=== PATIENT | male | born 1960 | race Caucasian/White ===

== ENCOUNTER 2020-03-08 00:19 | Emergency (ER) | payer MEDICARE, MEDICAID ==
[~2020-03-08] VITALS: Ht 172 cm; Wt 90.0 kg
--- OUTSIDE RECORDS SUMMARY | 2020-03-08 00:30 | XMS REPORT ---
Author Author Chester LEACH Organization [facility] Address [address] [place] [address] Care Team Providers Care Chief Human Resources Officer Name Role Phone CINDA LEACH Unavailable PROBLEMS Type Condition ICD9-CM Code [id number] Code Onset Dates Condition S tatus SNOMED Code Problem Essential hypertension I10 Active 73266042 Problem Chronic obstructive pulmonary disease, unspecified COPD ty pe J44.9 Active 39337960 Problem Type 2 diabetes mellitus wit hout complication, without long-term current use of insulin E11.9 Active 013011897 Problem Coronary artery disease invo lving [place] coronary artery of [place] heart without angina pectoris I25.10 Active 1641 023670452 Problem Reactive depression F32.9 Active 92656929 ALLERGIES Substance Reaction Event Type Date Status bee sting anaphylaxis Non Drug Allergy Jun, Active Benedryl elevated blood pressure Non Drug Allergy Jun, Active ENCOUNTERS Encounter Location Date Diagnosis [facility] [address] [id number] [place] [id number] Jul, [facility] [address] [id number] [id number] Jun, Coronary artery disease involving [place] coronary artery of [place] heart without angina pectoris I25.10 ; Essential hypertension I10 ; Type 2 diabetes mellitus without complication, without long-term current use of insulin E11.9 ; Chronic obstructive pulmonary disease, unspecified COPD type J44.9 and Reactive depression F32.9 IMMUNIZATIONS No Known Immunizations SOCIAL HISTORY Never Assessed REASON FOR VISIT Establish Care Vick SORIA, Needs med refills Vick SORIA, Med list verified with livan Beyer RN PLAN OF CARE Activity Details Follow Up 4 Weeks Reason:htn est car e VITAL SIGNS Height 66 in 2018-06-16 Weight 253.0 lbs 2018-06-16 Temperature 96.3 degrees Fahrenheit 2018-06-16 Heart Rate 98 bpm 2018-06-16 Respiratory Rate 22 2018-06-16 BMI 40.83 kg/m2 2018-06-16 Blood pressure systolic 212 mmHg 2018-06-16 Blood pressure diastolic 92 mmHg 2018-06-16 MEDICATIONS Medication Instructions Dosage Frequency Start Date End Date Duration S tatus Plavix 75 MG Orally Once a day 1 tablet 24h 30 day(s ) Active Lisinopril 40 MG Orally Once a day 1 tablet 24h 30 d ay(s) Active Lipitor 80 MG Orally Once a day 1 tablet 24h 30 day( s) Active Albuterol Sulfate HFA 108 (90 Base) mcg/act Inhalation 4 chen es a day 2 puffs as needed 6h Jun, Active Carvedilol 25 MG Orally 2 times a day 1 tablet 12h Active Norvasc 2.5 MG Orally Once a day 1 tablet 24h 30 day (s) Active Gabapentin 300 MG Orally 3 times a day 1 capsule 8h 30 day(s) Active Isosorbide Mononitrate ER 60 MG Orally Once a day 1 tablet in the mor naheed 24h 30 day(s) Active Prazosin HCl 1 MG Orally Once a day 1 capsule at bedtime 24h 30 day(s) Active Glucometer as directed Jun, Acti ve MetFORMIN HCl ER 500 MG Orally 2 times a day 2 tablets 12h 30 day(s) Active RESULTS No Results PROCEDURES No Known procedures INSTRUCTIONS MEDICATIONS ADMINISTERED No Known Medications MEDICAL (GENERAL) HISTORY Type Description Date Medical History congestive heart failure Medical History atherosclerosis Medical History hypertension Medical History diabetes type 2 Medical History COPD Medical History [place] 27 Surgical History brenda w/screw in right leg 2013 Surgical History stints x2 2017 Surgical History Teeth removal 1995 Surgical History sleep apnea surgery Hospitalization History [facility] Heart [facility] 06/2018
--- OUTSIDE RECORDS SUMMARY | 2020-03-08 00:30 | XMS REPORT ---
Author Author Chester MARSHALL Organization [facility] Address [address] [place] [address] Care Team Providers Care Automotive Assembler Name Role Phone KRUPA MARSHALL Unavailable PROBLEMS Type Condition ICD9-CM Code [id number] Code Onset Dates Condition S tatus SNOMED Code Problem Essential hypertension I10 Active 69882939 Problem Chronic obstructive pulmonary disease, unspecified COPD ty pe J44.9 Active 12032215 Problem Type 2 diabetes mellitus wit hout complication, without long-term current use of insulin E11.9 Active 048586778 Problem Coronary artery disease invo lving [place] coronary artery of [place] heart without angina pectoris I25.10 Active 1641 813593437 Problem Reactive depression F32.9 Active 45964786 ALLERGIES No Information ENCOUNTERS Encounter Location Date [facility] [address] [id number], [place] [id number] Aug, [facility] [address] [id number], [place] [id number] Jul, [facility] [address] [facility] [id number] 100[place], [place] [address] Jul, [facility] [address] [id number], [place] [id number] Jul, [facility] [address] [id number], [place] [id number] Jul, Coronary artery disease involving [place] coronary artery of [place] heart without angina pectoris I25.10 ; Essential hypertension I10 ; Type 2 diabetes mellitus without complication, without long-term current use of insulin E11.9 ; Cellulitis of lower extremity, unspecified laterality L03.119 ; History of CHF (congestive heart failure) Z86.79 and Acute bacterial conjunctivitis of both eyes H10.33 [facility] [address] [id number] [place] [id number] Jul, [facility] [address] [id number] Maura GU[place]PA S [id number] Jun, Type 2 diabetes mellitus without complic ation, without long-term current use of insulin E11.9 ; Essential hypertension I10 ; Coronary artery disease involving [place] coronary artery of [place] heart without angina pectoris I25.10 and Chronic obstructive pulmonary disease, unspecified COPD type J44.9 [facility] [address] [id number] [place] [id number] Jun, [facility] [address] [id number] [place] [id number] Jun, Coronary artery disease involving [place] coronary artery of [place] heart without angina pectoris I25.10 ; Essential hypertension I10 ; Type 2 diabetes mellitus without complication, without long-term current use of insulin E11.9 ; Chronic obstructive pulmonary disease, unspecified COPD type J44.9 and Reactive depression F32.9 IMMUNIZATIONS No Known Immunizations SOCIAL HISTORY Never Assessed REASON FOR VISIT Returned call PLAN OF CARE VITAL SIGNS MEDICATIONS Unknown Medications RESULTS No Results PROCEDURES No Known procedures INSTRUCTIONS MEDICATIONS ADMINISTERED No Known Medications MEDICAL (GENERAL) HISTORY Type Description Date Medical History congestive heart failure Medical History atherosclerosis Medical History hypertension Medical History diabetes type 2 Medical History COPD Medical History [place] age 27 Surgical History brenda w/screw in right leg 2013 Surgical History stints x2 2017 Surgical History Teeth removal 1995 Surgical History sleep apnea surgery Hospitalization History [facility] Heart issues 06/2018 Hospitalization History [facility] for CP and hypertension 06/22/2018
--- OUTSIDE RECORDS SUMMARY | 2020-03-08 00:30 | XMS REPORT ---
Author Author Chester LEACH [facility] Address [address] [place] [address] Care Team Providers Care Glue Bone Crusher Name Role Phone CINDA LEACH Unavailable PROBLEMS Type Condition ICD9-CM Code [id number]-SV Code Onset Dates Condition S tatus SNOMED Code Problem Essential hypertension I10 Active 41152333 Problem Chronic obstructive pulmonary disease, unspecified COPD ty pe J44.9 Active 79744939 Problem Type 2 diabetes mellitus wit hout complication, without long-term current use of insulin E11.9 Active 805768131 Problem Coronary artery disease invo lving [place] coronary artery of [place] heart without angina pectoris I25.10 Active 1641 049836539 Problem Reactive depression F32.9 Active 73578489 ALLERGIES No Information ENCOUNTERS Encounter Location Date Diagnosis [facility] [address] [id number] [place], [place] [id number] Jul, [facility] [address] [facility] [address] [id number] [place] [id number] Jun, [facility] [address] [id number] [place] [id number] Jun, Coronary artery disease involving [place] coronary artery of [place] heart without angina pectoris I25.10 ; Essential hypertension I10 ; Type 2 diabetes mellitus without complication, without long-term current use of insulin E11.9 ; Chronic obstructive pulmonary disease, unspecified COPD type J44.9 and Reactive depression F32.9 IMMUNIZATIONS No Known Immunizations SOCIAL HISTORY Never Assessed REASON FOR VISIT PLAN OF CARE VITAL SIGNS MEDICATIONS Unknown Medications RESULTS No Results PROCEDURES No Known procedures INSTRUCTIONS MEDICATIONS ADMINISTERED No Known Medications MEDICAL (GENERAL) HISTORY Type Description Date Medical History congestive heart failure Medical History atherosclerosis Medical History hypertension Medical History diabetes type 2 Medical History COPD Medical History [place] age 27 Surgical History brenda w/screw in right leg 2013 Surgical History stints x2 2017 Surgical History Teeth removal 1995 Surgical History sleep apnea surgery Hospitalization History [facility] Heart [facility] 06/2018
--- OUTSIDE RECORDS SUMMARY | 2020-03-08 00:30 | XMS REPORT ---
Author Author Chester LEACH Organization [facility] Address [address] [place] [address] Care Team Providers Care Research Interviewer Name Role Phone CINDA LEACH Unavailable PROBLEMS Type Condition ICD9-CM Code [id number] Code Onset Dates Condition S tatus SNOMED Code Problem Essential hypertension I10 Active 49557584 Problem Chronic obstructive pulmonary disease, unspecified COPD ty pe J44.9 Active 06510903 Problem Type 2 diabetes mellitus wit hout complication, without long-term current use of insulin E11.9 Active 963710349 Problem Coronary artery disease invo lving [place] coronary artery of [place] heart without angina pectoris I25.10 Active 1641 657724991 Problem Reactive depression F32.9 Active 06047952 ALLERGIES No Information ENCOUNTERS Encounter Location Date [facility] [facility] [id number] [place], [place] [id number] Aug, [facility] [id number] CREEK, [place] [id number] Jul, [email or web address] [address] [id number] C[place] [id number] Jul, Coronary artery disease involving [place] coronary artery of [place] heart without angina pectoris I25.10 ; Essential hypertension I10 ; Type 2 diabetes mellitus without complication, without long-term current use of insulin E11.9 ; Cellulitis of lower extremity, unspecified laterality L03.119 ; History of CHF (congestive heart failure) Z86.79 and Acute bacterial conjunctivitis of both eyes H10.[address] [facility] [id number] CREEK[place] [id number] Jul, [facility] [address] [facility] [address] [id number] [facility] [id number] Jun, Type 2 diabetes mellitus without complic ation, without long-term current use of insulin E11.9 ; Essential hypertension I10 ; Coronary artery disease involving [place] coronary artery of [place] heart without angina pectoris I25.10 and Chronic obstructive pulmonary disease, unspecified COPD type J44.9 [facility] [address] [id number] [place] [id number] Jun, [facility] [address] [id number] [place] [id number] Jun, Coronary artery disease involving [place] coronary artery of [place] heart without angina pectoris I25.10 ; Essential hypertension I10 ; Type 2 diabetes mellitus without complication, without long-term current use of insulin E11.9 ; Chronic obstructive pulmonary disease, unspecified COPD type J44.9 and Reactive depression F32.9 IMMUNIZATIONS No Known Immunizations SOCIAL HISTORY Never Assessed REASON FOR VISIT phone call PLAN OF CARE VITAL SIGNS MEDICATIONS Unknown Medications RESULTS No Results PROCEDURES No Known procedures INSTRUCTIONS MEDICATIONS ADMINISTERED No Known Medications MEDICAL (GENERAL) HISTORY Type Description Date Medical History congestive heart failure Medical History atherosclerosis Medical History hypertension Medical History diabetes type 2 Medical History COPD Medical History [place] 27 Surgical History brenda w/screw in right leg 2013 Surgical History stints x2 2017 Surgical History Teeth removal 1995 Surgical History sleep apnea surgery Hospitalization History [facility] issues 06/2018 Hospitalization History [facility] for CP and hypertension 06/22/2018
--- OUTSIDE RECORDS SUMMARY | 2020-03-08 00:30 | XMS REPORT ---
Author Author Chester IBRAHIM [facility] ELIAS Address [address] [place] [address] Care Team Providers Care Twister In Name Role Phone DARIANA IBRAHIM Unavailable PROBLEMS Type Condition ICD9-CM Code [id number] Code Onset Dates Condition S tatus SNOMED Code Problem Essential hypertension I10 Active 77956318 Problem Chronic obstructive pulmonary disease, unspecified COPD ty pe J44.9 Active 07665244 Problem Type 2 diabetes mellitus wit hout complication, without long-term current use of insulin E11.9 Active 562032460 Problem Coronary artery disease invo lving [place] coronary artery of [place] heart without angina pectoris I25.10 Active 1641 730877735 Problem Reactive depression F32.9 Active 31006001 ALLERGIES Substance Reaction Event Type Date Status Benedryl elevated blood pressure Non Drug Allergy Jul, Active bee sting anaphylaxis Non Drug Allergy Jul, Active ENCOUNTERS Encounter Location Date Diagnosis [facility] [address] [address] [id number] [id number] [place]AP[place] [id number] Aug, [facility] [address] [id number] RAP[place], [place] [id number] Jul, [facility] [id number] RAPIDS, [place] [id number] Jul, Coronary artery disease involving [place] coronary artery of [place] heart without angina pectoris I25.10 ; Essential hypertension I10 ; Type 2 diabetes mellitus without complication, without long-term current use of insulin E11.9 ; Cellulitis of lower extremity, unspecified laterality L03.119 ; History of CHF (congestive heart failure) Z86.79 and Acute bacterial conjunctivitis of both eyes H10.33 [facility] [address] [address] [id number] RAPIDS, [place] [phone] Jul, [facility] [address] [id number] [facility] [id number] Jun, Type 2 diabetes mellitus without complic ation, without long-term current use of insulin E11.9 ; Essential hypertension I10 ; Coronary artery disease involving [place] coronary artery of [place] heart without angina pectoris I25.10 and Chronic obstructive pulmonary disease, unspecified COPD type J44.9 [facility] [address] [id number] [place] [id number] Jun, [facility] [id number] RAPIDS, [place] [id number] Jun, Coronary artery disease involving [place] coronary artery of [place] heart without angina pectoris I25.10 ; Essential hypertension I10 ; Type 2 diabetes mellitus without complication, without long-term current use of insulin E11.9 ; Chronic obstructive pulmonary disease, unspecified COPD type J44.9 and Reactive depression F32.9 IMMUNIZATIONS No Known Immunizations SOCIAL HISTORY Never Assessed REASON FOR VISIT blood pressure BFERRISMA PLAN OF CARE Activity Details Follow Up 1 Week Reason:BP/cellulitis follow up Pending Test LIPID PANEL Pending Test CMP Pending Test THYROID ANALYZER Pending Test BNP Pending Test EXTRA LAVENDER-TOP TUBE VITAL SIGNS Height 66 in 2018-07-18 Weight 246.3 lbs 2018-07-18 Temperature 98.2 degrees Fahrenheit 2018-07-18 Heart Rate 83 bpm 2018-07-18 Respiratory Rate 22 2018-07-18 Oximetry 95 % 2018-07-18 BMI 39.75 kg/m2 2018-07-18 Blood pressure systolic 133 mmHg 2018-07-18 Blood pressure diastolic 76 mmHg 2018-07-18 MEDICATIONS Medication Instructions Dosage Frequency Start Date End Date Duration S tatus MetFORMIN HCl ER 500 mg Orally 2 times a day 2 tablets 12h Active Prazosin HCl 1 MG Orally Once a day 1 capsule at bedtime 24h 30 day(s) Active Bactrim DS 800-160 MG Orally Twice a day 1 tablet 12h Jul, 10 day(s) Active Norvasc 10 MG Orally Once a day 1 tablet 24h 90 days Active Lasix 20 MG Orally Once a day 1 tablet 24h Jul, 5 da ys Active Ranexa 500 MG Orally Twice a day 1 tablet 12h 30 day (s) Active Amaryl 2 MG Orally Once a day 1 tablet with breakf ast or the first main meal of the day 24h 11 Dec, 2018 90 days Active Polytrim 07115-9.1 UNIT/ML Ophthalmic Four times a day 1 drop in to affected eye 6h Jul, 7 days Active Albuterol Sulfate HFA 108 (90 Base) mcg/act Inhalation 4 chen es a day 2 puffs as needed 6h Jun, Active Lipitor 80 MG Orally Once a day 1 tablet 24h 30 day( s) Active Clonidine HCl 0.1 MG Orally 3 times a day 1 tablet 8h Active Glucometer as directed Jun, Acti ve Plavix 75 MG Orally Once a day 1 tablet 24h Active Isosorbide Mononitrate ER 60 mg Orally Once a day 1 tablet in the mor naheed 24h Active Lisinopril-Hydrochlorothiazide 20-12.5 MG Orally 2 times a day 1 ta blet 12h Jul, 90 days Active Carvedilol 25 MG Orally 2 times a day 1 tablet 12h 9 0 days Active Anoro Ellipta 62.5-25 MCG/INH Inhalation Once a day 1 puff 24h 19 N 2017 Active RESULTS Name Result Date Reference Range GLUCOSE FINGERSTICK (IN HOUSE) 2018-07-18 GLU FINGERSTICK 247 PC 0830am Lot # [id number] Exp date 09/01/2018 URINE DRUG SCREEN (IN HOUSE) 2018-07-18 Lot # [id number] Exp date 12/27/2019 Control + COCAINE negative AMPH negative MTD negative THC negative OPIATE negative BENZO negative PCP negative BAR negative OXY negative MAMP negative BUP negative MDMA negative TCA negative UA LONG DIP (IN HOUSE) 2018-07-18 Lot # [id number] Exp date 03/07/2019 Clarity clear Color yellow Odor no GLU negative SUNNY negative KET negative SG 1.020 BLO negative pH 6.0 Protein 1+ URO 0.2 NIT negative REGULO 1+ Lot # Exp date PROCEDURES Procedure Date Ordered Result Body Site COMPREHEN METABOLIC PANEL Jul 18, 2018 LIPID PANEL Jul 18, 2018 GLUCOSE BLOOD TEST Jul 18, 2018 VENIPUNCT, ROUTINE* Jul 18, 2018 NATRIURETIC PEPTIDE Jul 18, 2018 ASSAY THYROID STIM HORMONE Jul 18, 2018 DRUG TEST PRSMV DIR OPT OBS Jul 18, 2018 URINALYSIS, AUTO, W/O SCOPE Jul 18, 2018 INSTRUCTIONS MEDICATIONS ADMINISTERED No Known Medications MEDICAL (GENERAL) HISTORY Type Description Date Medical History congestive heart failure Medical History atherosclerosis Medical History hypertension Medical History diabetes type 2 Medical History COPD Medical History [place] age 27 Surgical History brenda w/screw in right leg 2013 Surgical History stints x2 2018 Surgical History Teeth removal 1996 Surgical History sleep apnea surgery Hospitalization History [facility] Heart issues 06/2018 Hospitalization History [facility] for CP and hypertension 06/22/2018
--- OUTSIDE RECORDS SUMMARY | 2020-03-08 00:30 | XMS REPORT ---
Author Author Chester LEACH [facility] Address [address] [place] [address] Care Team Providers Care Justowriter Operator Name Role Phone CINDA LEACH Unavailable PROBLEMS Type Condition ICD9-CM Code NOR66-LP Code Onset Dates Condition S tatus SNOMED Code Problem Essential hypertension I10 Active 16213618 Problem Chronic obstructive pulmonary disease, unspecified COPD ty pe J44.9 Active 18204581 Problem Type 2 diabetes mellitus wit hout complication, without long-term current use of insulin E11.9 Active [id number] Problem Coronary artery disease invo lving [place] coronary artery of [place] heart without angina pectoris I25.10 Active 1641 [id number] Problem Reactive depression F32.9 Active [id number] ALLERGIES Substance Reaction Event Type Date Status bee sting anaphylaxis Non Drug Allergy Jun, Active Benedryl elevated blood pressure Non Drug Allergy Jun, Active ENCOUNTERS Encounter Location Date Diagnosis [facility] [place] [id number] [id number] [id number] Jul, [facility] [address] [facility] [id number] [facility] [id number] Jun, Type 2 diabetes mellitus without complic ation, without long-term current use of insulin E11.9 ; Essential hypertension I10 ; Coronary artery disease involving [place] coronary artery of [place] heart without angina pectoris I25.10 and Chronic obstructive pulmonary disease, unspecified COPD type J44.9 [facility] [place] [id number] [id number] [id number] Jun[facility] [id number] [id number] Jun, Coronary artery disease involving [place] coronary artery of [place] heart without angina pectoris I25.10 ; Essential hypertension I10 ; Type 2 diabetes mellitus without complication, without long-term current use of insulin E11.9 ; Chronic obstructive pulmonary disease, unspecified COPD type J44.9 and Reactive depression F32.9 IMMUNIZATIONS No Known Immunizations SOCIAL HISTORY Never Assessed REASON FOR VISIT Hospital f/u from [facility] for SOB and Cardiac CP Bailee SORIA PLAN OF CARE Activity Details Follow Up ascd Reason: VITAL SIGNS Height 66 in 2018-06-26 Weight 245.6 lbs 2018-06-26 Temperature 96 degrees Fahrenheit 2018-06-26 Heart Rate 68 bpm 2018-06-26 Respiratory Rate 16 2018-06-26 BMI 39.64 kg/m2 2018-06-26 Blood pressure systolic 128 mmHg 2018-06-26 Blood pressure diastolic 82 mmHg 2018-06-26 MEDICATIONS Medication Instructions Dosage Frequency Start Date End Date Duration S tatus Carvedilol 25 MG Orally 2 times a day 1 tablet 12h Active Alprazolam 0.25 MG Orally 3 times a day 1 tablet 8h Active Lisinopril 40 MG Orally Once a day 1 tablet 24h 30 d ay(s) Active Isosorbide Mononitrate ER 60 MG Orally Once a day 1 tablet in the mor naheed 24h 30 day(s) Active Clonidine HCl 0.1 MG Orally 3 times a day 1 tablet at bedtime 8h Active Hydrochlorothiazide 25 MG Orally Once a day 1 tablet in the morning 24 h 30 day(s) Active HydrALAZINE HCl 50 mg Orally every 8 hours 1 tablet with food 8h Active Norvasc 10 MG Orally Once a day 1 tablet 24h Active Albuterol Sulfate HFA 108 (90 Base) mcg/act Inhalation 4 chen es a day 2 puffs as needed 6h Jun, Active Lipitor 80 MG Orally Once a day 1 tablet 24h 30 day( s) Active Gabapentin 300 MG Orally 3 times a day 1 capsule 8h 30 day(s) Active Anoro Ellipta 62.5-25 MCG/INH Inhalation Once a day 1 puff 24h 19 2017 Active Plavix 75 MG Orally Once a day 1 tablet 24h 30 day(s ) Active Prazosin HCl 1 MG Orally Once a day 1 capsule at bedtime 24h 30 day(s) Active Glucometer as directed Jun, Acti ve MetFORMIN HCl ER 500 MG Orally 2 times a day 2 tablets 12h 30 day(s) Active Ranexa 500 MG Orally Twice a day 1 tablet 12h 30 day (s) Active RESULTS Name Result Date Reference Range A1C (IN HOUSE) A1C IN HOUSE 9.0 4.3 - 5.6 % Previous A1c Lot [id number] Exp date 04/2020 PROCEDURES Procedure Date Ordered Result Body Site GLYCATED HEMOGLOBIN TEST Jun 26, 2018 Billing Notes on claim Jun 26, 2018 INSTRUCTIONS MEDICATIONS ADMINISTERED No Known Medications MEDICAL (GENERAL) HISTORY Type Description Date Medical History congestive heart failure Medical History atherosclerosis Medical History hypertension Medical History diabetes type 2 Medical History COPD Medical History MA age 27 Surgical History brenda w/screw in right leg 2013 Surgical History stints x2 2017 Surgical History Teeth removal 1995 Surgical History sleep apnea surgery Hospitalization History [facility] Heart issues 06/2018 Hospitalization History [facility] for CP and hypertension 06/22/2018
--- OUTSIDE RECORDS SUMMARY | 2020-03-08 00:31 | XMS REPORT | Continuity of Care Document ---
Author Organization Unknown Address Unknown Phone Unavailable Allergies Active Description Code Type Severity Reaction Onset Reported/Identified Relationship to Patient Clinical Status Yes BEE STINGS 39 Miscellaneous Aller gy Unknown N/A 09/04/2019 Yes DIPHENHYDRAMINE [id number] D rug Allergy Unknown BP HIGH 09/04/2019 Yes FUROSEMIDE [id number] Drug Allerg y Unknown RENAL FAILURE 09/04/2019 Yes LABETALOL [id number] Drug Allergy Unknown VOMIT 09/04/2019 Yes NITROGLYCERIN [id number] Luis Angel g Allergy Unknown HEADACHE AND VOMITING 09/04/2019 Medications There is no data. Problems Date Dx Coded Attending Type Code Diagnosis Diagnosed By 08/19/2019 Chris Castillo .9 PNEUMONIA, UNSPECIFIED ORGANISM 08/19/2019 Sudholt, Chris Patel J44 .1 CHRONIC OBSTRUCTIVE PULMONARY DISEASE W (ACUTE) EX 08/19/2019 Sudholt, Chris Bryant R06 .02 SHORTNESS OF BREATH 08/19/2019 Dashawnholt, Chris Becerril18 .9 PNEUMONIA, UNSPECIFIED ORGANISM 08/19/2019 Sudholt, Chris Patel J44 .1 CHRONIC OBSTRUCTIVE PULMONARY DISEASE W (ACUTE) EX 08/19/2019 DashawnholtChris R06 .02 SHORTNESS OF BREATH 08/19/2019 Sudholt, Chris Becerril18 .9 PNEUMONIA, UNSPECIFIED ORGANISM 08/19/2019 Sudholt, Chris Patel J44 .1 CHRONIC OBSTRUCTIVE PULMONARY DISEASE W (ACUTE) EX 08/19/2019 Dashawnholt, Chris Bryant R06 .02 SHORTNESS OF BREATH 08/19/2019 Dashawnholt, Chris Becerril18 .9 PNEUMONIA, UNSPECIFIED ORGANISM 08/19/2019 Dashawnholt, Chris Patel J44 .1 CHRONIC OBSTRUCTIVE PULMONARY DISEASE W (ACUTE) EX 08/19/2019 Dashawnholt, Chris Bryant R06 .02 SHORTNESS OF BREATH 08/19/2019 Sudholt, Chris Becerril18 .9 PNEUMONIA, UNSPECIFIED ORGANISM 08/19/2019 Sudholt, Chris Patel J44 .1 CHRONIC OBSTRUCTIVE PULMONARY DISEASE W (ACUTE) EX 08/19/2019 Sudholt, Chris Bryant R06 .02 SHORTNESS OF BREATH 08/20/2019 Sudholt, Chris Patel I50 .33 ACUTE ON CHRONIC DIASTOLIC (CONGESTIVE) HEART FAIL 08/20/2019 Sudholt, Chris Patel J44 .1 CHRONIC OBSTRUCTIVE PULMONARY DISEASE W (ACUTE) EX 08/20/2019 Sudholt, Chris Patel J69 .0 PNEUMONITIS DUE TO INHALATION OF FOOD AND VOMIT 08/20/2019 Sudholt, Chris Bryant R06 .02 SHORTNESS OF BREATH 08/20/2019 Sudholt, Chris Patel I50 .33 ACUTE ON CHRONIC DIASTOLIC (CONGESTIVE) HEART FAIL 08/20/2019 Sudholt, Chris Patel J44 .1 CHRONIC OBSTRUCTIVE PULMONARY DISEASE W (ACUTE) EX 08/20/2019 Sudholt, Chris Patel J69 .0 PNEUMONITIS DUE TO INHALATION OF FOOD AND VOMIT 08/20/2019 Sudholt, Chris Bryant R06 .02 SHORTNESS OF BREATH 08/20/2019 Sudholt, Chris Patel I50 .33 ACUTE ON CHRONIC DIASTOLIC (CONGESTIVE) HEART FAIL 08/20/2019 Sudholt, Chris Patel J44 .1 CHRONIC OBSTRUCTIVE PULMONARY DISEASE W (ACUTE) EX 08/20/2019 Sudholt, Chris Patel J69 .0 PNEUMONITIS DUE TO INHALATION OF FOOD AND VOMIT 08/20/2019 Sudholt, Chris Bryant R06 .02 SHORTNESS OF BREATH 08/20/2019 Sudholt, Chris Patel I50 .33 ACUTE ON CHRONIC DIASTOLIC (CONGESTIVE) HEART FAIL 08/20/2019 Sudholt, Chris Patel J44 .1 CHRONIC OBSTRUCTIVE PULMONARY DISEASE W (ACUTE) EX 08/20/2019 Sudholt, Chris Patel J69 .0 PNEUMONITIS DUE TO INHALATION OF FOOD AND VOMIT 08/20/2019 Sudholt, Chris Bryant R06 .02 SHORTNESS OF BREATH 08/21/2019 Sudholt, Chris Patel I50 .33 ACUTE ON CHRONIC DIASTOLIC (CONGESTIVE) HEART FAIL 08/21/2019 Sudholt, Chris Patel J44 .1 CHRONIC OBSTRUCTIVE PULMONARY DISEASE W (ACUTE) EX 08/21/2019 Sudholt, Chris Patel J69 .0 PNEUMONITIS DUE TO INHALATION OF FOOD AND VOMIT 08/21/2019 Sudholt, Chris Bryant R06 .02 SHORTNESS OF BREATH 08/21/2019 Sudholt, Chris Patel I50 .33 ACUTE ON CHRONIC DIASTOLIC (CONGESTIVE) HEART FAIL 08/21/2019 Sudholt, Chris Patel J44 .1 CHRONIC OBSTRUCTIVE PULMONARY DISEASE W (ACUTE) EX 08/21/2019 Sudholt, Chris Patel J69 .0 PNEUMONITIS DUE TO INHALATION OF FOOD AND VOMIT 08/21/2019 Sudholt, Chris Bryant R06 .02 SHORTNESS OF BREATH 08/22/2019 Sudholt, Chris Patel I50 .33 ACUTE ON CHRONIC DIASTOLIC (CONGESTIVE) HEART FAIL 08/22/2019 Sudholt, Chris Patel J44 .1 CHRONIC OBSTRUCTIVE PULMONARY DISEASE W (ACUTE) EX 08/22/2019 Sudholt, Chris Patel J69 .0 PNEUMONITIS DUE TO INHALATION OF FOOD AND VOMIT 08/22/2019 Sudholt, Chris Bryant R06 .02 SHORTNESS OF BREATH 08/22/2019 Sudholt, Chris Patel I50 .33 ACUTE ON CHRONIC DIASTOLIC (CONGESTIVE) HEART FAIL 08/22/2019 Sudholt, Chris Patel J44 .1 CHRONIC OBSTRUCTIVE PULMONARY DISEASE W (ACUTE) EX 08/22/2019 Sudholt, Chris Patel J69 .0 PNEUMONITIS DUE TO INHALATION OF FOOD AND VOMIT 08/22/2019 Sudholt, Chris Bryant R06 .02 SHORTNESS OF BREATH 08/24/2019 Sudholt, Chris Patel I50 .33 ACUTE ON CHRONIC DIASTOLIC (CONGESTIVE) HEART FAIL 08/24/2019 Sudholt, Chris Patel J44 .1 CHRONIC OBSTRUCTIVE PULMONARY DISEASE W (ACUTE) EX 08/24/2019 Sudholt, Chris Patel J69 .0 PNEUMONITIS DUE TO INHALATION OF FOOD AND VOMIT 08/24/2019 Sudholt, Chris Bryant R06 .02 SHORTNESS OF BREATH 08/24/2019 Sudholt, Chris Patel I50 .33 ACUTE ON CHRONIC DIASTOLIC (CONGESTIVE) HEART FAIL 08/24/2019 Sudholt, Chris Patel J44 .1 CHRONIC OBSTRUCTIVE PULMONARY DISEASE W (ACUTE) EX 08/24/2019 Sudholt, Chris Patel J69 .0 PNEUMONITIS DUE TO INHALATION OF FOOD AND VOMIT 08/24/2019 Sudholt, Chris Bryant R06 .02 SHORTNESS OF BREATH 08/24/2019 Sudholt, Chris Patel I50 .33 ACUTE ON CHRONIC DIASTOLIC (CONGESTIVE) HEART FAIL 08/24/2019 Sudholt, Chris Patel J44 .1 CHRONIC OBSTRUCTIVE PULMONARY DISEASE W (ACUTE) EX 08/24/2019 Sudholt, Chris Patel J69 .0 PNEUMONITIS DUE TO INHALATION OF FOOD AND VOMIT 08/24/2019 Sudholt, Chris Bryant R06 .02 SHORTNESS OF BREATH 08/24/2019 Sudholt, Chris Patel I50 .33 ACUTE ON CHRONIC DIASTOLIC (CONGESTIVE) HEART FAIL 08/24/2019 Sudholt, Chris Patel J44 .1 CHRONIC OBSTRUCTIVE PULMONARY DISEASE W (ACUTE) EX 08/24/2019 Sudholt, Chris Patel J69 .0 PNEUMONITIS DUE TO INHALATION OF FOOD AND VOMIT 08/24/2019 Sudholt, Chris Bryant R06 .02 SHORTNESS OF BREATH 08/24/2019 Sudholt, Chris Patel I50 .33 ACUTE ON CHRONIC DIASTOLIC (CONGESTIVE) HEART FAIL 08/24/2019 Sudholt, Chris Patel J44 .1 CHRONIC OBSTRUCTIVE PULMONARY DISEASE W (ACUTE) EX 08/24/2019 Sudholt, Chris Patel J69 .0 PNEUMONITIS DUE TO INHALATION OF FOOD AND VOMIT 08/24/2019 Sudholt, Chris Bryant R06 .02 SHORTNESS OF BREATH 08/24/2019 Sudholt, Chris Patel I50 .33 ACUTE ON CHRONIC DIASTOLIC (CONGESTIVE) HEART FAIL 08/24/2019 Sudholt, Chris Patel J44 .1 CHRONIC OBSTRUCTIVE PULMONARY DISEASE W (ACUTE) EX 08/24/2019 Sudholt, Chris Patel J69 .0 PNEUMONITIS DUE TO INHALATION OF FOOD AND VOMIT 08/24/2019 Sudholt, Chris Bryant R06 .02 SHORTNESS OF BREATH 08/24/2019 Sudholt, Chris Bravo E11 .9 TYPE 2 DIABETES MELLITUS WITHOUT COMPLICATIONS 08/24/2019 Sudholt, Chris Bravo E78 .5 HYPERLIPIDEMIA, UNSPECIFIED 08/24/2019 Sudholt, Chris Bravo E87 .6 HYPOKALEMIA 08/24/2019 Sudholt, Chris Bravo F17.210 NICOTINE DEPENDENCE, CIGARETTES, UNCOMPLICATED 08/24/2019 Sudholt, Chris Bravo G47 .30 SLEEP APNEA, UNSPECIFIED 08/24/2019 Sudholt, Chris Bravo I11 .0 HYPERTENSIVE HEART DISEASE WITH HEART FAILURE 08/24/2019 Sudholt, Chris Bravo I24 .9 ACUTE ISCHEMIC HEART DISEASE, UNSPECIFIED 08/24/2019 Sudholt, Chris Bravo 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 08/24/2019 Sudholt, Chris Bravo I26 .99 OTHER PULMONARY EMBOLISM WITHOUT ACUTE COR PULMONA 08/24/2019 Sudholt, Chris Bravo I50 .33 ACUTE ON CHRONIC DIASTOLIC (CONGESTIVE) HEART FAIL 08/24/2019 Sudholt, Chris Bravo I82.409 ACUTE EMBOLISM AND THOMBOS UNSP DEEP VN UNSP LOWER 08/24/2019 Sudholt, Chirs Bravo J44 .0 CHR OBSTRUCTIVE PULMON DISEASE WITH (ACUTE) LOWER 08/24/2019 Sudholt, Chris Bravo J44 .1 CHRONIC OBSTRUCTIVE PULMONARY DISEASE W (ACUTE) EX 08/24/2019 Sudholt, Chris Bravo J69 .0 PNEUMONITIS DUE TO INHALATION OF FOOD AND VOMIT 08/24/2019 Sudholt, Chris Bravo J98 .11 ATELECTASIS 08/24/2019 Sudholt, Chris Bryant R06 .02 SHORTNESS OF BREATH 08/24/2019 Sudholt, Chris Bravo Z66 DO NOT RESUSCITATE 08/24/2019 Sudholt, Chris Bravo Z79 .2 PENITENTIARY (CURRENT) USE OF ANTIBIOTICS 08/24/2019 Sudholt, Chris Bravo Z79 .51 PENITENTIARY (CURRENT) USE OF INHALED STEROIDS 08/24/2019 Sudholt, Chris Bravo 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 08/24/2019 Sudholt, Chris Bravo Z79.899 OTHER PENITENTIARY (CURRENT) DRUG THERAPY 08/24/2019 Sudholt, Chris Bravo Z82 .49 FAMILY HX OF ISCHEM HEART DIS AND OTH DIS OF THE C 08/24/2019 Sudholt, Chris Bravo Z83 .42 FAMILY HISTORY OF FAMILIAL HYPERCHOLESTEROLEMIA 08/24/2019 Sudholt, Chris Bravo Z88 .8 ALLERGY STATUS TO OTH DRUG/MEDS/BIOL SUBST STATUS 08/24/2019 Sudholt, Chris Bravo Z91.030 BEE ALLERGY STATUS 08/24/2019 Sudholt, Chris Bravo Z95 .5 PRESENCE OF CORONARY ANGIOPLASTY IMPLANT AND GRAFT 08/24/2019 Sudholt, Chris Patel I50 .33 ACUTE ON CHRONIC DIASTOLIC (CONGESTIVE) HEART FAIL 08/24/2019 Sudholt, Chris Patel J44 .1 CHRONIC OBSTRUCTIVE PULMONARY DISEASE W (ACUTE) EX 08/24/2019 Sudholt, Chris Patel J69 .0 PNEUMONITIS DUE TO INHALATION OF FOOD AND VOMIT 08/24/2019 Dashawnholt, Chris Bryant R06 .02 SHORTNESS OF BREATH 09/05/2019 MurrietaCee Bueno MD J44.1 CHRONIC OBSTRUCTIVE PULMONARY DISEASE W (ACUTE) EX 09/05/2019 MurrietaCee Bueno MD. Manny R07.9 CHEST PAIN, UNSPECIFIED 09/05/2019 MuriretaCee Bueno MD J44.1 CHRONIC OBSTRUCTIVE PULMONARY DISEASE W (ACUTE) EX 09/05/2019 MurrietaCee Bueno MD. A R07.9 CHEST PAIN, UNSPECIFIED 09/05/2019 MurrietaCee Bueno MD J44.1 CHRONIC OBSTRUCTIVE PULMONARY DISEASE W (ACUTE) EX 09/05/2019 MurrietaCee Bueno MD A R07.9 CHEST PAIN, UNSPECIFIED 09/05/2019 MurrietaCee Bueno MD J44.1 CHRONIC OBSTRUCTIVE PULMONARY DISEASE W (ACUTE) EX 09/05/2019 MurrietaCee Bueno MD. A R07.9 CHEST PAIN, UNSPECIFIED 09/05/2019 MurrietaCee Bueno MD F E11.9 TYPE 2 DIABETES MELLITUS WITHOUT COMPLICATIONS 09/05/2019 MurrietaCee Bueno MD E44.1 MILD PROTEIN-CALORIE MALNUTRITION 09/05/2019 MurrietaCee Bueno MD E78.5 HYPERLIPIDEMIA, UNSPECIFIED 09/05/2019 MurrietaCee Bueno MD F E87.6 HYPOKALEMIA 09/05/2019 MurrietaCee De La Torre MD F F12.90 CANNABIS USE, UNSPECIFIED, UNCOMPLICATED 09/05/2019 MurrietaCee De La Torre MD F F17.210 NICOTINE DEPENDENCE, CIGARETTES, UNCOMPLICATED 09/05/2019 MurrietaCee De La Torre MD F F41.9 ANXIETY DISORDER, UNSPECIFIED 09/05/2019 MurrietaCee De La Torre MD F G47.30 SLEEP APNEA, UNSPECIFIED 09/05/2019 MurrietaCee De La Torre MD F I11.0 HYPERTENSIVE HEART DISEASE WITH HEART FAILURE 09/05/2019 MurrietaCee Bueno MD F I25.10 ATHSCL HEART DISEASE OF [place] CORONARY ARTERY W/O 09/05/2019 MurrietaCee Bueno MD F I50.32 CHRONIC DIASTOLIC (CONGESTIVE) HEART FAILURE 09/05/2019 MurrietaCee De La Torre MD J44.1 CHRONIC OBSTRUCTIVE PULMONARY DISEASE W (ACUTE) EX 09/05/2019 MurrietaCee Bueno MD A R06.02 SHORTNESS OF BREATH 09/05/2019 MurrietaCee Bueno MD F R07.89 OTHER CHEST PAIN 09/05/2019 MurrietaCee Bueno MD R07.9 CHEST PAIN, UNSPECIFIED 09/05/2019 MurrietaCee De La Torre MD F Z68.37 BODY MASS INDEX (BMI) 37.0-37.9, ADULT 09/05/2019 MurrietaCee Bueno MD F Z79.84 PENITENTIARY (CURRENT) USE OF ORAL HYPOGLYCEMIC DRUGS 09/05/2019 MurrietaCee Bueno MD F Z79.899 OTHER PENITENTIARY (CURRENT) DRUG THERAPY 09/05/2019 MurrietaCee Bueno MD F Z87.01 PERSONAL HISTORY OF PNEUMONIA (RECURRENT) 09/05/2019 MurrietaCee Bueno MD F Z88.8 ALLERGY STATUS TO OTH DRUG/MEDS/BIOL SUBST STATUS 09/05/2019 MurrietaCee Bueno MD F Z91.030 BEE ALLERGY STATUS 09/05/2019 MurrietaCee Bueno MD Z91.14 PATIENT'S OTHER NONCOMPLIANCE WITH MEDICATION PEDRITO 09/05/2019 MurrietaCee Bueno MD Z95.5 PRESENCE OF CORONARY ANGIOPLASTY IMPLANT AND GRAFT Procedures There is no data. Results Test Result Range CMP - 07/18/18 13:57 GLUCOSE 159 mg/dL 65-99 UREA NITROGEN (BUN) 15 mg/dL 7-25 CREATININE 1.10 mg/dL 0.70-1.33 eGFR NON-AFR. [place] 75 mL/min/1.73m2 > OR = 60 eGFR 87 mL/min/1.73m2 > OR = 60 BUN/CREATININE RATIO NOT APPLICABLE (calc) 6-22 SODIUM 137 mmol/L 135-146 POTASSIUM 3.9 mmol/L 3.5-5.3 CHLORIDE 102 mmol/L 98-110 CARBON DIOXIDE 26 mmol/L 20-32 CALCIUM 9.3 mg/dL 8.6-10.3 PROTEIN, TOTAL 6.3 g/dL 6.1-8.1 ALBUMIN 4.2 g/dL 3.6-5.1 GLOBULIN 2.1 g/dL (calc) 1.9-3.7 ALBUMIN/GLOBULIN RATIO 2.0 (calc) 1.0-2. 5 BILIRUBIN, TOTAL 0.7 mg/dL 0.2-1.2 ALKALINE PHOSPHATASE 136 U/L 40-115 AST 14 U/L 10-35 ALT 15 U/L 9-46 BNP - 07/18/18 13:57 B TYPE NATRIURETIC PEPTIDE (BNP) 50 pg/mL <100 INFLUENZA A/B ANTIGEN - 08/18/19 07:45 INFLUENZA A ANTIGEN Negative Negative INFLUENZA B ANTIGEN Negative Negative COMPREHENSIVE METABOLIC PANEL - 08/18/19 07:55 SODIUM 142 mmol/L 136-145 POTASSIUM 3.3 mmol/L 3.5-5.1 CHLORIDE 103 mmol/L 98-107 CO2 31 mmol/L 21-32 ANION GAP 8 mmol/L 7-16 BUN 12 mg/dL 7-18 CREATININE 1.1 mg/dL 0.6-1.3 GLUCOSE 109 mg/dL 70-99 CALCIUM 8.2 mg/dL 8.5-10.1 Est Glomerular Filtration Rate 69 SeeTable NRG SGOT 22 U/L 15-37 TOTAL BILIRUBIN 0.7 mg/dL <0.1-1.0 ALKALINE PHOSPHATASE 136 U/L 46-116 SGPT 29 U/L 30-65 TOTAL PROTEIN 7.0 g/dL 6.4-8.2 ALBUMIN 3.1 g/dL 3.4-5.0 LIPASE - 08/18/19 07:55 LIPASE 136 U/L 73-393 NT-PRO BRAIN KYLIE PEPTIDE - 08/18/19 07:5 5 NT-PRO BRAIN KYLIE PEPTIDE 1097 pg/mL <300 CBC with Differential - 08/18/19 07:55 HEMOGLOBIN 13.9 gm/dL 14.0-18.0 WBC 11.7 thou/uL 4.0-11.0 RBC 5.00 mil/uL 4.50-6.00 MCV 81.1 fL 80.0-100.0 MCH 27.8 pg 26.0-34.0 MCHC 34.3 g/dL 28.0-37.0 RDW 15.6 % 10.5-14.5 HEMATOCRIT 40.5 % 42.0-52.0 PLATELET COUNT* 260 thou/uL 150-400 MPV 8.2 fl. 7.2-11.1 MANUAL DIFF NO NRG POLYS 73.9 % NRG LYMPHOCYTES 16.4 % NRG MONOCYTES 7.5 % NRG EOSINOPHILS 1.2 % NRG BASOPHILS 1.0 % NRG ABSOLUTE NEUTROPHILS 8.7 thou/uL 1.6-8.1 ABSOLUTE LYMPHOCYTES 1.9 thou/uL 0.8-5.3 ABSOLUTE MONOCYTES 0.9 thou/uL 0.0-1.2 ABSOLUTE EOSINOPHILS 0.1 thou/uL 0.0-0.7 ABSOLUTE BASOPHILS 0.1 thou/uL 0.0-0.2 NUCLEATED RBCS 0 /100WBC NRG LACTIC ACID - 08/18/19 07:55 LACTIC ACID 1.7 mmol/L 0.4-2.0 TROPONIN-I LEVEL - 08/18/19 07:55 TROPONIN-I LEVEL 0.45 ng/mL <0.06 PROTIME* - 08/18/19 07:55 PROTIME 10.1 Seconds 9.20-11.50 INR 1.0 NRG CK-MB MASS - 08/18/19 07:55 CK-MB MASS 3.9 ng/mL <0.5-3.6 CULTURE BLOOD* - 08/18/19 07:55 RBC NO GROWTH on 08/23/19 at 1013 [facility] CULTURE BLOOD* - 08/18/19 08:30 RBC NO GROWTH on 08/23/19 at 1013 [facility] TROPONIN-I LEVEL - 08/18/19 09:37 TROPONIN-I LEVEL 0.45 ng/mL <0.06 GLUCOSE POCT - 08/18/19 20:55 GLUCOSE POCT 135 mg/dl 70 BASIC METABOLIC PANEL - 08/19/19 07:20 SODIUM 141 mmol/L 136-145 POTASSIUM 3.5 mmol/L 3.5-5.1 CHLORIDE 103 mmol/L 98-107 CO2 31 mmol/L 21-32 ANION GAP 7 mmol/L 7-16 BUN 16 mg/dL 7-18 CREATININE 1.2 mg/dL 0.6-1.3 GLUCOSE 156 mg/dL CALCIUM 8.0 mg/dL 8.5-10.1 Est Glomerular Filtration Rate 62 SeeTable NR MAGNESIUM - 08/19/19 07:20 MAGNESIUM 1.6 mg/dL 1.8-2.4 GLUCOSE POCT - 08/19/19 07:39 GLUCOSE POCT 141 mg/dl GLUCOSE POCT - 08/19/19 16:29 GLUCOSE POCT 144 mg/dl GLUCOSE POCT - 08/19/19 20:21 GLUCOSE POCT 187 mg/dl GLUCOSE POCT - 08/20/19 07:41 GLUCOSE POCT 115 mg/dl GLUCOSE POCT - 08/20/19 11:43 GLUCOSE POCT 152 mg/dl GLUCOSE POCT - 08/20/19 16:46 GLUCOSE POCT 168 mg/dl CBC with Differential - 08/21/19 06:33 HEMOGLOBIN 13.8 gm/dL 14.0-18.0 WBC 8.3 thou/uL 4.0-11.0 RBC 4.93 mil/uL 4.50-6.00 MCV 80.6 fL 80.0-100.0 MCH 28.0 pg 26.0-34.0 MCHC 34.7 g/dL 28.0-37.0 RDW 15.0 % 10.5-14.5 HEMATOCRIT 39.8 % 42.0-52.0 PLATELET COUNT* 274 thou/uL 150-400 MPV 8.4 fl. 7.2-11.1 MANUAL DIFF NO NRG POLYS 73.0 % NRG LYMPHOCYTES 15.7 % NRG MONOCYTES 7.8 % NRG EOSINOPHILS 2.9 % NRG BASOPHILS 0.6 % NRG ABSOLUTE NEUTROPHILS 6.1 thou/uL 1.6-8.1 ABSOLUTE LYMPHOCYTES 1.3 thou/uL 0.8-5.3 ABSOLUTE MONOCYTES 0.7 thou/uL 0.0-1.2 ABSOLUTE EOSINOPHILS 0.2 thou/uL 0.0-0.7 ABSOLUTE BASOPHILS 0.1 thou/uL 0.0-0.2 NUCLEATED RBCS 0 /100WBC NRG COMPREHENSIVE METABOLIC PANEL - 08/21/19 06:35 SODIUM 137 mmol/L 136-145 POTASSIUM 3.7 mmol/L 3.5-5.1 CHLORIDE 99 mmol/L 98-107 CO2 34 mmol/L 21-32 ANION GAP 4 mmol/L 7-16 BUN 15 mg/dL 7-18 CREATININE 1.0 mg/dL 0.6-1.3 GLUCOSE 139 mg/dL CALCIUM 8.6 mg/dL 8.5-10.1 Est Glomerular Filtration Rate 77 SeeTable NRG SGOT 16 U/L 15-37 TOTAL BILIRUBIN 1.0 mg/dL <0.1-1.0 ALKALINE PHOSPHATASE 137 U/L 46-116 SGPT 24 U/L 30-65 TOTAL PROTEIN 6.8 g/dL 6.4-8.2 ALBUMIN 3.0 g/dL 3.4-5.0 LACTIC ACID - 08/21/19 06:35 LACTIC ACID 0.8 mmol/L 0.4-2.0 GLUCOSE POCT - 08/21/19 08:02 GLUCOSE POCT 133 mg/dl GLUCOSE POCT - 08/21/19 12:14 GLUCOSE POCT > 500 mg/dl GLUCOSE - 08/21/19 12:59 GLUCOSE 160 mg/dL GLUCOSE POCT - 08/21/19 17:04 GLUCOSE POCT 120 mg/dl GLUCOSE POCT - 08/21/19 20:34 GLUCOSE POCT 196 mg/dl GLUCOSE POCT - 08/22/19 08:00 GLUCOSE POCT 135 mg/dl GLUCOSE POCT - 08/22/19 12:33 GLUCOSE POCT 117 mg/dl GLUCOSE POCT - 01/15/20 17:22 GLUCOSE POCT 161 mg/dl GLUCOSE POCT - 08/22/19 20:22 GLUCOSE POCT 168 mg/dl GLUCOSE POCT - 08/23/19 08:24 GLUCOSE POCT 117 mg/dl GLUCOSE POCT - 08/23/19 12:33 GLUCOSE POCT 145 mg/dl GLUCOSE POCT - 08/23/19 16:44 GLUCOSE POCT 160 mg/dl CBC with Differential - 08/24/19 07:35 HEMOGLOBIN 13.0 gm/dL 14.0-18.0 WBC 7.8 thou/uL 4.0-11.0 RBC 4.73 mil/uL 4.50-6.00 MCV 80.1 fL 80.0-100.0 MCH 27.5 pg 26.0-34.0 MCHC 34.4 g/dL 28.0-37.0 RDW 15.0 % 10.5-14.5 HEMATOCRIT 37.9 % 42.0-52.0 PLATELET COUNT* 278 thou/uL 150-400 MPV 8.0 fl. 7.2-11.1 MANUAL DIFF NO NRG POLYS 65.8 % NRG LYMPHOCYTES 19.9 % NRG MONOCYTES 10.2 % NRG EOSINOPHILS 2.8 % NRG BASOPHILS 1.3 % NRG ABSOLUTE NEUTROPHILS 5.2 thou/uL 1.6-8.1 ABSOLUTE LYMPHOCYTES 1.6 thou/uL 0.8-5.3 ABSOLUTE MONOCYTES 0.8 thou/uL 0.0-1.2 ABSOLUTE EOSINOPHILS 0.2 thou/uL 0.0-0.7 ABSOLUTE BASOPHILS 0.1 thou/uL 0.0-0.2 NUCLEATED RBCS 0 /100WBC NRG BASIC METABOLIC PANEL - 08/24/19 07:35 SODIUM 139 mmol/L 136-145 POTASSIUM 3.6 mmol/L 3.5-5.1 CHLORIDE 99 mmol/L 98-107 CO2 34 mmol/L 21-32 ANION GAP 6 mmol/L 7-16 BUN 19 mg/dL 7-18 CREATININE 1.0 mg/dL 0.6-1.3 GLUCOSE 121 mg/dL CALCIUM 8.7 mg/dL 8.5-10.1 Est Glomerular Filtration Rate 77 SeeTable NRG GLUCOSE POCT - 08/24/19 07:49 GLUCOSE POCT 112 mg/dl 70-99 GLUCOSE POCT - 08/24/19 12:25 GLUCOSE POCT 190 mg/dl 70-99 CBC with Differential - 09/04/19 14:28 HEMOGLOBIN 13.5 gm/dL 14.0-18.0 WBC 6.2 thou/uL 4.0-11.0 RBC 4.81 mil/uL 4.50-6.00 MCV 80.7 fL 80.0-100.0 MCH 28.1 pg 26.0-34.0 MCHC 34.8 g/dL 28.0-37.0 RDW 14.7 % 10.5-14.5 HEMATOCRIT 38.8 % 42.0-52.0 PLATELET COUNT* 255 thou/uL 150-400 MPV 7.9 fl. 7.2-11.1 MANUAL DIFF NO NRG POLYS 60.3 % NRG LYMPHOCYTES 25.0 % NRG MONOCYTES 9.1 % NRG EOSINOPHILS 4.4 % NRG BASOPHILS 1.2 % NRG ABSOLUTE NEUTROPHILS 3.7 thou/uL 1.6-8.1 ABSOLUTE LYMPHOCYTES 1.5 thou/uL 0.8-5.3 ABSOLUTE MONOCYTES 0.6 thou/uL 0.0-1.2 ABSOLUTE EOSINOPHILS 0.3 thou/uL 0.0-0.7 ABSOLUTE BASOPHILS 0.1 thou/uL 0.0-0.2 NUCLEATED RBCS 0 /100WBC NRG PROTIME* - 09/04/19 14:28 PROTIME 10.3 Seconds 9.20-11.50 INR 1.0 NRG APTT - 09/04/19 14:28 APTT 26.4 Seconds 25.0-31.3 COMPREHENSIVE METABOLIC PANEL - 09/04/19 14:28 SODIUM 139 mmol/L 136-145 POTASSIUM 3.1 mmol/L 3.5-5.1 CHLORIDE 102 mmol/L 98-107 CO2 31 mmol/L 21-32 ANION GAP 6 mmol/L 7-16 BUN 14 mg/dL 7-18 CREATININE 1.2 mg/dL 0.6-1.3 GLUCOSE 193 mg/dL 70-99 CALCIUM 8.4 mg/dL 8.5-10.1 Est Glomerular Filtration Rate 62 SeeTable NRG SGOT 21 U/L 15-37 TOTAL BILIRUBIN 0.6 mg/dL <0.1-1.0 ALKALINE PHOSPHATASE 132 U/L 46-116 SGPT 32 U/L 30-65 TOTAL PROTEIN 6.8 g/dL 6.4-8.2 ALBUMIN 3.1 g/dL 3.4-5.0 CPK, TOTAL* - 09/04/19 14:28 CPK, TOTAL* 95 U/L 26-308 NT-PRO BRAIN KYLIE PEPTIDE - 09/04/19 14:2 8 NT-PRO BRAIN KYLIE PEPTIDE 860 pg/mL <300 TROPONIN-I LEVEL - 09/04/19 14:28 TROPONIN-I LEVEL 0.33 ng/mL <0.06 LACTIC ACID - 09/04/19 14:28 LACTIC ACID 1.7 mmol/L 0.4-2.0 ALCOHOL - 09/04/19 14:28 ALCOHOL < 10 mg/dL <10 CULTURE BLOOD* - 09/04/19 14:28 RBC NO GROWTH on 09/09/19 at 1501 NRG CULTURE BLOOD* - 09/04/19 14:33 RBC NO GROWTH on 09/09/19 at 1500 NRG TROPONIN-I LEVEL - 09/04/19 16:27 TROPONIN-I LEVEL 0.31 ng/mL <0.06 GLUCOSE POCT - 09/04/19 20:41 GLUCOSE POCT 290 mg/dl 70-99 URINALYSIS-CULTURE IF IND - 09/05/19 03: 50 COLLECTION METHOD CLEAN CATCH NRG URINE COLOR YELLOW NRG URINE CLARITY CLEAR NRG URINE SPECIFIC GRAVITY 1.025 1.005-1 .030 URINE pH 6.0 5.0-8.0 URINE PROTEIN 2+ Negative URINE GLUCOSE-RANDOM 1+ Negative URINE KETONES NEGATIVE Negative URINE BILIRUBIN NEGATIVE Negative URINE BLOOD NEGATIVE Negative URINE UROBILINOGEN 0.2 E.U./dl 0.2-1.0 SQUAMOUS 0-3 Few /LPF 0-3 URINE RBC 3-10 Few /HPF 0-2 MUCUS 4-6 Moderate strn/LPF None See n CRYSTALS None Seen /LPF None Seen URINE NITRITE-REFLEX NEGATIVE Negative URINE LEUKOCYTES-REFLEX NEGATIVE Negati ve URINE WBC-REFLEX 0-5 Rare /HPF 0-5 BACTERIA-REFLEX 1-9 Few /HPF None Seen HYALINE CASTS 4-10 Moderate /LPF None Se en DRUGS OF ABUSE - 09/05/19 03:50 AMP/METHAMP POSITIVE Negative BARBITURATES Negative Negative BENZODIAZEPINES Negative Negative COCAINE Negative Negative METHADONE Negative Negative OPIATES Negative Negative PCP Negative Negative THC Negative Negative LIPID PANEL - 12/03/19 14:13 CHOLESTEROL, TOTAL 146 mg/dL <200 HDL CHOLESTEROL 44 mg/dL > OR = 40 TRIGLYCERIDES 100 mg/dL <150 LDL-CHOLESTEROL 82 mg/dL (calc) NRG CHOL/HDLC RATIO 3.3 (calc) <5.0 NON HDL CHOLESTEROL 102 mg/dL (calc) <13 0 CMP - 12/03/19 14:13 GLUCOSE 92 mg/dL 65-139 UREA NITROGEN (BUN) 11 mg/dL 7-25 CREATININE 1.01 mg/dL 0.70-1.33 eGFR NON-AFR. [place] 82 mL/min/1.73m2 > OR = 60 eGFR 95 mL/min/1.73m2 > OR = 60 BUN/CREATININE RATIO NOT APPLICABLE (calc) 6-22 SODIUM 142 mmol/L 135-146 POTASSIUM 3.3 mmol/L 3.5-5.3 CHLORIDE 100 mmol/L 98-110 CARBON DIOXIDE 30 mmol/L 20-32 CALCIUM 9.8 mg/dL 8.6-10.3 PROTEIN, TOTAL 7.0 g/dL 6.1-8.1 ALBUMIN 4.2 g/dL 3.6-5.1 GLOBULIN 2.8 g/dL (calc) 1.9-3.7 ALBUMIN/GLOBULIN RATIO 1.5 (calc) 1.0-2. 5 BILIRUBIN, TOTAL 0.6 mg/dL 0.2-1.2 ALKALINE PHOSPHATASE 135 U/L 35-144 AST 30 U/L 10-35 ALT 21 U/L 9-46 CBC - 12/03/19 14:13 WHITE BLOOD CELL COUNT 8.7 Thousand/uL 3 .8-10.8 RED BLOOD CELL COUNT 5.18 Million/uL 4.2 0-5.80 HEMOGLOBIN 13.9 g/dL 13.2-17.1 HEMATOCRIT 41.9 % 38.5-50.0 MCV 80.9 fL 80.0-100.0 MCH 26.8 pg 27.0-33.0 MCHC 33.2 g/dL 32.0-36.0 RDW 14.0 % 11.0-15.0 PLATELET COUNT 281 Thousand/uL 140-400 MPV 10.7 fL 7.5-12.5 ABSOLUTE NEUTROPHILS 6595 cells/uL 1500- 7800 ABSOLUTE LYMPHOCYTES 1296 cells/uL 850-3 900 ABSOLUTE MONOCYTES 600 cells/uL 200-950 ABSOLUTE EOSINOPHILS 165 cells/uL 15-500 ABSOLUTE BASOPHILS 44 cells/uL 0-200 NEUTROPHILS 75.8 % NRG LYMPHOCYTES 14.9 % NRG MONOCYTES 6.9 % NRG EOSINOPHILS 1.9 % NRG BASOPHILS 0.5 % NRG THYROID ANALYZER - 12/03/19 14:13 TSH 1.22 mIU/L 0.40-4.50 BNP - 12/03/19 14:13 B TYPE NATRIURETIC PEPTIDE (BNP) 193 pg/mL <100 BMP - 12/07/19 09:21 GLUCOSE 145 mg/dL 65-99 UREA NITROGEN (BUN) 24 mg/dL 7-25 CREATININE 1.18 mg/dL 0.70-1.33 eGFR NON-AFR. [place] 68 mL/min/1.73m2 > OR = 60 eGFR 79 mL/min/1.73m2 > OR = 60 BUN/CREATININE RATIO NOT APPLICABLE (calc) 6-22 SODIUM 139 mmol/L 135-146 POTASSIUM 3.7 mmol/L 3.5-5.3 CHLORIDE 98 mmol/L 98-110 CARBON DIOXIDE 30 mmol/L 20-32 CALCIUM 9.0 mg/dL 8.6-10.3 Encounters ACCT No. Visit Date/Time Discharge Status Pt. Type Provider Facility Loc./Unit Complaint [id number] 09/04/2019 16:54:00 09/05/2019 09:4 0:00 DIS [facility] [place] [facility]CHES T PAIN [id number] 08/18/2019 09:43:00 08/24/2019 14:5 5:00 [facility]/ELEVATED TROPONIN/ COPD/HTN [id number] 01/22/2020 12:20:00 01/22/2020 23:59: 59 [id number] 12/07/2019 08:20:00 Document Registration [id number] 12/03/2019 14:40:00 Document Registration [id number] 07/18/2018 13:20:00 Document Registration [id number] 03/08/2020 00:26:[address] Emergency LAVINIA VARGAS, KWAKU Pereyra [facility] ER ABD PAIN
[2020-03-08] MEDS ORDERED: RX-ALBUTEROL INHALER 8 GM HFA (VENTOLIN) IH STA (01:04)
[2020-03-08] MEDS ORDERED: fentaNYL INJECTION 100 MCG/2 ML AMP IVP ONE (01:15)
[2020-03-08] MEDS ORDERED: FAMOTIDINE 20MG/2ML IV (PEPCID) IVP ONE (01:15)
[2020-03-08] MEDS ORDERED: ONDANSETRON 4 MG/2 ML (SDV) Z0FRAN IVP ONE (01:15)
[2020-03-08 01:16] LABS: BASOPHILS % (AUTO) 0 % (0-10); EOSINOPHILS # (AUTO) 0.3 10^3/uL (0.0-0.3); EOSINOPHILS % (AUTO) 3 % (0-10); HEMATOCRIT 40 % (40-54); HEMOGLOBIN 14.2 G/DL (13.3-17.7); LYMPHOCYTES # (AUTO) 2.2 X 10^3 (1.0-4.0); LYMPHOCYTES % (AUTO) 28 % (12-44); MEAN CORPUSCULAR HEMOGLOBIN 28 PG (25-34); MEAN CORPUSCULAR HGB CONC 35 G/DL (32-36); MEAN CORPUSCULAR VOLUME 79 FL (80-99); MONOCYTES # (AUTO) 0.8 X 10^3 (0.0-1.0); MONOCYTES % (AUTO) 11 % (0-12); NEUTROPHILS # (AUTO) 4.6 X 10^3 (1.8-7.8); NEUTROPHILS % (AUTO) 58 % (42-75); PLATELET COUNT 219 10^3/uL (130-400); RED CELL DISTRIBUTION WIDTH 14.6 % (10.0-14.5); WHITE BLOOD COUNT 7.9 10^3/uL (4.3-11.0)
[2020-03-08 01:23] LABS: ALBUMIN 4.1 GM/DL (3.2-4.5); CHLORIDE 97 MMOL/L (98-107); POTASSIUM 3.4 MMOL/L (3.6-5.0); SODIUM 136 MMOL/L (135-145)
[2020-03-08 01:25] LABS: GLUCOSE 196 MG/DL (70-105)
[2020-03-08 01:26] LABS: BILIRUBIN,URINE NEGATIVE (NEGATIVE); CLARITY,URINE CLEAR; COLOR,URINE YELLOW; GLUCOSE, URINE (UA) NEGATIVE (NEGATIVE); KETONES,URINE NEGATIVE (NEGATIVE); LEUKOCYTE ESTERASE ,URINE NEGATIVE (NEGATIVE); NITRITE,URINE NEGATIVE (NEGATIVE); PROTEIN,URINE 2+ (NEGATIVE)
[2020-03-08 01:26] LABS: CARBON DIOXIDE 28 MMOL/L (21-32); TOTAL PROTEIN 7.1 GM/DL (6.4-8.2)
[2020-03-08 01:27] LABS: BILIRUBIN,TOTAL 0.6 MG/DL (0.1-1.0)
[2020-03-08 01:29] LABS: ALKALINE PHOSPHATASE 135 U/L (40-136); CREATININE SERUM 1.12 MG/DL (0.60-1.30); GFR ESTIMATED > 60
[2020-03-08 01:30] LABS: BUN/CREATININE RATIO 13
[2020-03-08 01:32] LABS: ALANINE AMINOTRANSFERASE 20 U/L (0-55); LIPASE 46 U/L (8-78)
[2020-03-08 01:36] LABS: BACTERIA,URINE NEGATIVE /HPF; RBC,URINE 0-2 /HPF; SQUAMOUS EPITHELIAL CELL,UR 0-2 /HPF
[2020-03-08 01:37] LABS: AMPHETAMINE SCREEN, URINE NEGATIVE (NEGATIVE); BENZODIAZEPINES SCREEN URINE NEGATIVE (NEGATIVE); CANNABINOID SCREEN, URINE NEGATIVE (NEGATIVE); COCAINE SCREEN URINE NEGATIVE (NEGATIVE); METHAMPHETAMINE SCREEN URINE S NEGATIVE (NEGATIVE); OPIATE SCREEN URINE NEGATIVE (NEGATIVE)
[2020-03-08 01:38] LABS: BARBITURATE SCREEN URINE NEGATIVE (NEGATIVE); METHADONE STAT NEGATIVE (NEGATIVE); OXYCODONE STAT NEGATIVE (NEGATIVE); PROPOXYPHENE STAT NEGATIVE (NEGATIVE); TRICYCLIC ANTIDEPRESSANTS SCRE NEGATIVE (NEGATIVE)
--- NOTE | 2020-03-08 02:11 | ED Abdominal Pain ---
General Chief Complaint: Abdominal/GI Problems Stated Complaint: ABD PAIN Nursing Triage Note: Patient complaint of abd pain x1 month with diarrhea Sepsis Screen: No Definite Risk Source of Information: Patient Exam Limitations: No Limitations History of Present Illness Date Seen by Provider: Mar 08, 2020 Time Seen by Provider: 00:34 Initial Comments This 60-year-old man presents to the emergency room with complaints of upper abdominal pain, vomiting 1, and an episode of diarrhea with incontinence. He reports having multiple episodes of similar pain in the past for which she has been seen at [facility] in [place]. He lives in [place]. He also is quite short of breath and wheezing. He reports being out of his inhaler. He states he no longer wants to seek care at [facility] or [facility] because they "think I'm crazy". He also claims a chest give him Haldol and then to studies on him against his will. Patient is afebrile and denies any cough. Allergies and Home Medications Allergies Coded Allergies: bee venom protein (honey bee) (Verified Allergy, Unknown, 03/08/20) furosemide (Verified Adverse Reaction, Unknown, Renal Failure, 03/08/20) Renal Failure labetalol (Verified Adverse Reaction, Unknown, Headache, 03/08/20) Headache nitroglycerin (Verified Adverse Reaction, Unknown, Headache, 03/08/20) Headache Patient Home Medication List Home Medication List Reviewed: Yes Review of Systems Review of Systems Constitutional: no symptoms reported EENTM: No Symptoms Reported Respiratory: See HPI Cardiovascular: No Symptoms Reported Gastrointestinal: See HPI Genitourinary: No Symptoms Reported Musculoskeletal: no symptoms reported Skin: no symptoms reported Psychiatric/Neurological: No Symptoms Reported Endocrine: No Symptoms Reported Hematologic/Lymphatic: No Symptoms Reported Past Tpvkoak-Hetawj-Ywtilz Hx Past Med/Social Hx: Reviewed Nursing Past Med/Soc Hx Patient Social History Alcohol Use: Occasionally Uses Recreational Drug Use: Yes Drug of Choice: Marijuana for pain, 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 Smoking Status: Current Everyday Smoker Type Used: Cigarettes 2nd Hand Smoke Exposure: Yes Recent Foreign Travel: No Contact w/Someone Who Travel: No Recent Infectious Disease Expo: No Physical Abuse: No Sexual Abuse: No Mistreated: No Fear: No Immunizations Up To Date Tetanus Booster (TDap): Unknown Past Medical History Surgeries: Yes Coronary Stent Respiratory: Yes Asthma, COPD Currently Using CPAP: Yes Cardiac: Yes Coronary Artery Disease, Heart Attack, Hypertension Neurological: No Reproductive Disorders: No Gastrointestinal: No Musculoskeletal: No Endocrine: No HEENT: No Cancer: No Did You Recieve Any Treatments: No Psychosocial: No Integumentary: No Physical Exam Vital Signs Vital Signs - First Documented 03/08/20 00:30 Temp 36.8 Pulse 83 Resp 24 B/P (MAP) 201/115 (143) Pulse Ox 99 O2 Delivery Room Air Capillary Refill : Less Than 3 Seconds Height/Weight/BMI Height: '" Weight: lbs. oz. kg; 30.00 BMI Method: General Appearance: WD/WN, mild distress HEENT: PERRL/EOMI, normal ENT inspection Neck: normal inspection Respiratory: no respiratory distress, no accessory muscle use, wheezing Cardiovascular: regular rate, rhythm, no edema, no murmur Gastrointestinal: normal bowel sounds, soft, distended, tenderness (generalized and most prominent in the upper abdomen.) Extremities: normal inspection Neurologic/Psychiatric: pipe liner II-XII nml as tested, no motor/sensory deficits, alert, normal mood/affect, oriented x 3 Skin: normal color, warm/dry Progress/Results/Core Measures Results/Orders Lab Results Laboratory Tests Test 03/08/20 00:18 03/08/20 00:40 Range/Units Urine Color YELLOW Urine Clarity CLEAR Urine pH 6.0 5-9 Urine Specific Morgan 1.020 1.016-1.022 Urine Protein 2+ H NEGATIVE Urine Glucose (UA) NEGATIVE NEGATIVE Urine Ketones NEGATIVE NEGATIVE Urine Nitrite NEGATIVE NEGATIVE Urine Bilirubin NEGATIVE NEGATIVE Urine Urobilinogen 0.2 < = 1.0 MG/DL Urine Leukocyte Esterase NEGATIVE NEGATIVE Urine RBC (Auto) TRACE-I NEGATIVE Urine RBC 0-2 /HPF Urine WBC 2-5 /HPF Urine Squamous Epithelial Cells 0-2 /HPF Urine Crystals NONE /LPF Urine Bacteria NEGATIVE /HPF Urine Casts NONE /LPF Urine Mucus NEGATIVE /LPF Urine Culture Indicated NO Urine Opiates Screen NEGATIVE NEGATIVE Urine Oxycodone Screen NEGATIVE NEGATIVE Urine Methadone Screen NEGATIVE NEGATIVE Urine Propoxyphene Screen NEGATIVE NEGATIVE Urine Barbiturates Screen NEGATIVE NEGATIVE Ur Tricyclic Antidepressants Screen NEGATIVE NEGATIVE Urine Phencyclidine Screen NEGATIVE NEGATIVE Urine Amphetamines Screen NEGATIVE NEGATIVE Urine Methamphetamines Screen NEGATIVE NEGATIVE Urine Benzodiazepines Screen NEGATIVE NEGATIVE Urine Cocaine Screen NEGATIVE NEGATIVE Urine Cannabinoids Screen NEGATIVE NEGATIVE White Blood Count 7.9 4.3-11.0 10^3/uL Red Blood Count 5.09 4.35-5.85 10^6/uL Hemoglobin 14.2 13.3-17.7 G/DL Hematocrit 40 40-54 % Mean Corpuscular Volume 79 L 80-99 FL Mean Corpuscular Hemoglobin 28 25-34 PG Mean Corpuscular Hemoglobin Concent 35 32-36 G/DL Red Cell Distribution Width 14.6 H 10.0-14.5 % Platelet Count 219 130-400 10^3/uL Mean Platelet Volume 11.0 H 7.4-10.4 FL Neutrophils (%) (Auto) 58 42-75 % Lymphocytes (%) (Auto) 28 12-44 % Monocytes (%) (Auto) 11 0-12 % Eosinophils (%) (Auto) 3 0-10 % Basophils (%) (Auto) 0 0-10 % Neutrophils # (Auto) 4.6 1.8-7.8 X 10^3 Lymphocytes # (Auto) 2.2 1.0-4.0 X 10^3 Monocytes # (Auto) 0.8 0.0-1.0 X 10^3 Eosinophils # (Auto) 0.3 0.0-0.3 10^3/uL Basophils # (Auto) 0.0 0.0-0.1 10^3/uL Sodium Level 136 135-145 MMOL/L Potassium Level 3.4 L 3.6-5.0 MMOL/L Chloride Level 97 L 98-107 MMOL/L Carbon Dioxide Level 28 21-32 MMOL/L Anion Gap 11 5-14 MMOL/L Blood Urea Nitrogen 15 7-18 MG/DL Creatinine 1.12 0.60-1.30 MG/DL Estimat Glomerular Filtration Rate > 60 BUN/Creatinine Ratio 13 Glucose Level 196 H 70-105 MG/DL Calcium Level 9.0 8.5-10.1 MG/DL Corrected Calcium 8.9 8.5-10.1 MG/DL Total Bilirubin 0.6 0.1-1.0 MG/DL Aspartate Amino Transf (AST/SGOT) 19 5-34 U/L Alanine Aminotransferase (ALT/SGPT) 20 0-55 U/L Alkaline Phosphatase 135 40-136 U/L C-Reactive Protein High Sensitivity 0.56 H 0.00-0.50 MG/DL Total Protein 7.1 6.4-8.2 GM/DL Albumin 4.1 3.2-4.5 GM/DL Lipase 46 8-78 U/L Serum Alcohol < 10 <10 MG/DL My Orders Orders - KWAKU KATE MD Ua Culture If Indicated (03/08/20 00:34) Cbc With Automated Diff (03/08/20 01:04) Comprehensive Metabolic Panel (03/08/20 01:04) Hs C Reactive Protein (03/08/20 01:04) Lipase (03/08/20 01:04) Ed Iv/Invasive Line Start (03/08/20 01:04) Famotidine Injection (Pepcid Injection) (03/08/20 01:15) Ondansetron Injection (Zofran Injectio (03/08/20 01:15) Fentanyl Injection (Sublimaze Injection (03/08/20 01:15) Rx-Albuterol Inhaler (Rx-Ventolin Hfa In (03/08/20 01:04) Alcohol (03/08/20 01:04) Drug Screen Stat (Urine) (03/08/20 01:04) Ct Abdomen/Pelvis W (03/08/20 01:40) Iohexol Injection (Omnipaque 350 Mg/Ml 1 (03/08/20 02:15) Received Contrast (Hold Metformin- Contr (03/08/20 02:15) Ns (Ivpb) (Sodium Chloride 0.9% Ivpb Bag (03/08/20 02:15) Lidocaine 2% Viscous 15 Ml (Xylocaine Vi (03/08/20 02:45) Antacid Suspension (Mylanta Suspension (03/08/20 02:45) Medications Given in ED Current Medications Medications Dose Ordered Sig/Stephanie Route Start Time Stop Time Status Last Admin Dose Admin Al Hydrox/Mg Hydrox/Simethicone 30 ml ONCE ONCE PO 03/08/20 02:45 03/08/20 02:46 DC 03/08/20 02:40 30 ML Famotidine 20 mg ONCE ONCE IVP 03/08/20 01:15 03/08/20 01:16 DC 03/08/20 01:23 20 MG Fentanyl Citrate 75 mcg ONCE ONCE IVP 03/08/20 01:15 03/08/20 01:16 DC 03/08/20 01:25 75 MCG Iohexol 100 ml ONCE ONCE IV 03/08/20 02:15 8/1/20 02:17 DC 03/08/20 02:15 100 ML Lidocaine HCl 15 ml ONCE ONCE PO 03/08/20 02:45 03/08/20 02:46 DC 03/08/20 02:40 15 ML Ondansetron HCl 8 mg ONCE ONCE IVP 03/08/20 01:15 03/08/20 01:16 DC 03/08/20 01:22 8 MG Sodium Chloride 100 ml ONCE ONCE IV 03/08/20 02:15 03/08/20 02:17 DC 03/08/20 02:15 80 ML Vital Signs/I&O 03/08/20 03/08/20 00:30 03:50 Temp 36.8 36.9 Pulse 83 76 Resp 24 18 B/P (MAP) 201/115 (143) 160/92 Pulse Ox 99 97 O2 Delivery Room Air Room Air Blood Pressure Mean: 143 Progress Progress Note : Progress Note Patient was given an albuterol inhaler which resolved his wheezing. Fentanyl was given for his abdominal pain along with Pepcid and Zofran. Pain improved somewhat. Workup was unremarkable. CT was obtained showing no acute abnormalities. He was further treated with GI cocktail but that did not significantly improve his pain. Ultimately, he was discharged with pain of unknown cause. Diagnostic Imaging Diagonstic Imaging: CT Plain Films/CT/US/NM/MRI: abdomen, pelvis Comments CT abdomen and pelvis viewed by me and [facility] report reviewed. No acute abnormalities appreciated. Hepatomegaly noted. Departure Impression Primary Impression: COPD exacerbation Additional Impressions: Upper abdominal pain Enlarged liver Disposition: HOME, SELF-CARE Condition: Improved Departure-Patient Inst. Decision time for Depature: 03:38 Referrals: KRUPA MARSHALL (PCP/Family) Primary Care Physician Patient Instructions: Severe Abdominal Pain, Adult (DC) Add. Discharge Instructions: Follow-up with your primary care provider soon as possible. A definite cause of your pain was not identified in the ER. Enlarged liver can stretch the liver capsule and cause pain which may be a source of the pain you are experiencing. Treatment for this is gradual weight loss of 1-2 pounds per week. I also recommend that you take an antacid medication such as Pepcid or omeprazole daily for the next couple weeks. Return to care if you have worsening symptoms or develop new symptoms such as fever. All discharge instructions reviewed with patient and/or family. Voiced understanding. KWAKU KATE MD Mar 08, 2020 02:11
[2020-03-08] MEDS ORDERED: IOHEXOL 350 MG/ML 100 ML (OMNIPAQUE 350) VIAL IV ONE (02:15)
[2020-03-08] MEDS ORDERED: HOLD METFORMIN - RECEIVED CONTRAST 20 ML VIAL IV SCH (02:15)
[2020-03-08] MEDS ORDERED: NS 100 ML (IVPB) BAG IV ONE (02:15)
[2020-03-08] MEDS ORDERED: LIDOCAINE 2% VISCOUS 15 ML UDC PO ONE (02:45)
[2020-03-08] MEDS ORDERED: ANTACID SUSP 30 ML UDC (MYLANTA) PO ONE (02:45)
[2020-03-08 03:50] VITALS: BP 160/92
--- NOTE | 2020-03-08 07:40 | Diagnostic Imaging Report ---
PROCEDURE: CT abdomen and pelvis with contrast. TECHNIQUE: Multiple contiguous axial images were obtained through the abdomen and pelvis after administration of intravenous contrast. Auto Exposure Controls were utilized during the CT exam to meet ALARA standards for radiation dose reduction. INDICATION: Abdominal pain. No comparison available. FINDINGS: The visualized lung bases are clear without evidence of infiltrate or an effusion. There is no pericardial collection. The liver appears of mildly low density suggesting a component of steatosis. There is hepatomegaly with the liver measuring up to 20 cm in length. There is no focal intrahepatic abnormality. The gallbladder nondistended without evidence of biliary dilatation. The pancreas is unremarkable. The spleen is normal in size. There is no adrenal mass. The kidneys appear nonobstructing. There is a punctate stone within the inferior calyces of the left kidney. There is a larger stone within the right kidney, also nonobstructing measuring 9 mm. There is a simple appearing right renal cyst. There are no findings to suggest bowel obstruction. There is no abnormal bowel thickening. The appendix is normal. There is moderate stool demonstrated within the colon. There is no focal inflammation within the omentum or mesentery. There are no findings of free air, free fluid, abscess or adenopathy. There are atherosclerotic calcifications within a normal caliber aorta. The visualized portion of the spine demonstrates degenerative endplate changes and facet arthropathy without acute or suspicious osseous abnormalities. There does appear to likely be high-grade foraminal stenosis at the L5-S1 level and high-grade canal stenosis at L4-L5. IMPRESSION: 1. No CT findings of an acute inflammatory or obstructive process within the abdomen or pelvis 2. Hepatomegaly with probable steatosis. 3. Nonobstructing renal calculi bilaterally, right larger than left. 4. No bowel obstruction or appendicitis. 5. Atherosclerosis. 6. Degenerative disc disease and facet arthropathy with high-grade canal stenosis at L4-L5 and high-grade foraminal stenosis at the L5-S1 level. 7. I agree with the preliminary [facility] report. Dictated by: Dictated on workstation # [id number]
== END 2020-03-08 03:55 | disposition home or self-care (01) ==
LOC: ER 00:26
DX: J44.1 Chronic obstructive pulmonary disease with (acute) exacerbation (principal); R16.0 Hepatomegaly, not elsewhere classified; R10.84 Generalized abdominal pain; F17.210 Nicotine dependence, cigarettes, uncomplicated; Z91.030 Bee allergy status; Z88.8 Allergy status to other drugs, medicaments and biological substances
CPT/HCPCS: 36415; 74177; 80053; 80306; 80320; 81000; 83690; 85025; 86141